=== PATIENT | female | born 1960 | race Caucasian/White ===

== ENCOUNTER 2021-01-29 09:27 | Observation (INO) | payer OTHER, SELFPAY ==
[2021-01-29 10:13] LABS: #Lymphocytes 1.6 thou/uL (1.20-3.40); #Monocytes 0.5 thou/uL (0.11-0.59); #Neutrophils 4.5 thou/uL (1.40-6.50); %Basophils 0.3 % (0.0-1.0); %Eosinophils 0.3 % (0.0-10.0); %Lymphocytes 23.4 % (21.0-51.0); %Monocytes 8.2 % (0.0-10.0); %Neutrophils 67.8 % (42.0-75.0); Mean Corpuscular HGB CONC 35.6 g/dL (32.0-36.0); Mean Corpuscular Hemoglobin 34.3 pg (27.0-31.0); Mean Corpuscular Volume 96.3 fL (78.0-98.0); Mean Platelet Volume 8.3 fL (7.4-10.4); Platelet Count 226 thou/uL (130-400); RBC Distribution Width 11.5 % (11.5-14.5); Red Blood Cell (RBC) Count 3.81 mill/uL (4.20-5.40); White Blood Cell (WBC) Count 6.6 thou/uL (4.8-10.8)
[2021-01-29 10:34] LABS: Anion Gap 12 mmol/L (10-20); BUN (Urea Nitrogen) 7 mg/dL (9.8-20.1); Carbon Dioxide 30 mmol/L (23-31); Chloride 99 mmol/L (98-107); Potassium 3.6 mmol/L (3.5-5.1); Sodium 137 mmol/L (136-145)
[2021-01-29 10:35] LABS: ALT (SGPT) 17 U/L (8-55); AST (SGOT) 25 U/L (5-34); Albumin 3.8 g/dL (3.4-4.8); Alkaline Phosphatase 75 U/L (40-110); Bilirubin, Total 0.4 mg/dL (0.2-1.2); Calc. Creatinine Clearance 0 mL/min (70-130); Calcium 9.4 mg/dL (7.8-10.44); Globulin 3.2 g/dL (2.4-3.5); Glucose 110 mg/dL (80-115)
[2021-01-29 12:41] LABS: Bacteria/HPF None Seen HPF (None Seen); Bilirubin Negative (Negative); Blood, Urine Trace (Negative); Clarity Clear (Clear); Glucose, Urine (Dipstick) Normal (Negative); Ketone, Urine Negative (Negative); Leukocyte Negative Leu/uL (Negative); Nitrite Negative (Negative); Protein, Urine (Dipstick) Negative (Neg-Trace); RBC/HPF 0-3 HPF (0-3); Specific Gravity, Urine 1.006 (1.002-1.036); Squamous Epithelial None Seen HPF (0-3); Urobilinogen Normal mg/dL (Less than 2); WBC/HPF None Seen HPF (0-3)
[2021-01-29 12:49] LABS: Amphetamine Not Detected (NotDetected); Barbiturates Screen Not Detected (NotDetected); Benzodiazepine Screen Detected (NotDetected); Cocaine Metabolite Screen Not Detected (NotDetected); Methadone Not Detected (NotDetected); Methamphetamine Not Detected (NotDetected); Opiate Screen Detected (NotDetected); Oxycodone Screen Not Detected (NotDetected); Phencyclidine (PCP) Not Detected (NotDetected); THC/Cannabinoid Screen Not Detected (NotDetected); Tricyclic Screen Not Detected (NotDetected)
[2021-01-29 16:07] LABS: SARS-CoV-2 NAA Rapid Test Not Detected (NotDetected)
[2021-01-29] MEDS ORDERED: Ziprasidone 20 MG VIAL IM PRN (16:33)
[2021-01-29] MEDS ORDERED: Nicotine 14 MG PATCH ONE (17:34)
[2021-01-29] MEDS ORDERED: HYDROcodone/Acetaminophen 10/325 mg Tablet ONE (17:34)
[2021-01-29] MEDS ORDERED: Ziprasidone 20 MG CAP ONE (17:34)
[2021-01-29 17:37] LABS: HIV (1/2) Antibody/Antigen Non-Reactive (NonReactive); HIV 1/2 INDEX 0.08 S/CO (<1.00); Hep C IgG Ab Non-Reactive (NonReactive); Hep C Index 0.08 S/CO (0-0.79)
[2021-01-29 17:38] LABS: Syphilis Antibody Nonreactive (Nonreactive); Syphilis Antibody Index 0.03 S/CO (<1.00 Non-Reactive)
[2021-01-29] MEDS: HYDROcodone/Acetaminophen 10/325 mg Tablet PO PRN (18:25)
[2021-01-29] MEDS ORDERED: Ziprasidone 20 MG CAP PO SCH (18:30)
[2021-01-29] MEDS: Nicotine 21 MG PATCH TD SCH (19:42)
[2021-01-29] MEDS ORDERED: Zolpidem Tartrate 5 MG TAB ONE (20:46)
[2021-01-29] MEDS ORDERED: Zolpidem Tartrate 5 MG TAB PO SCH (21:00)
[2021-01-30] MEDS ORDERED: HYDROcodone/Acetaminophen 10/325 mg Tablet ONE ×2 (05:32→11:32)
[2021-01-30] MEDS: HYDROcodone/Acetaminophen 10/325 mg Tablet PO PRN ×3 (05:41→17:32)
[2021-01-30 06:15] LABS: #Monocytes 0.4 thou/uL (0.11-0.59); #Neutrophils 3.6 thou/uL (1.40-6.50); %Basophils 0.2 % (0.0-1.0); %Eosinophils 0.2 % (0.0-10.0); %Lymphocytes 19.7 % (21.0-51.0); %Neutrophils 72.9 % (42.0-75.0); Hemoglobin 12.7 g/dL (12.0-16.0); Mean Corpuscular HGB CONC 34.9 g/dL (32.0-36.0); Mean Corpuscular Hemoglobin 33.6 pg (27.0-31.0); Mean Corpuscular Volume 96.3 fL (78.0-98.0); Mean Platelet Volume 8.5 fL (7.4-10.4); Platelet Count 216 thou/uL (130-400); RBC Distribution Width 11.5 % (11.5-14.5); Red Blood Cell (RBC) Count 3.79 mill/uL (4.20-5.40)
[2021-01-30 06:34] LABS: ALT (SGPT) 14 U/L (8-55); AST (SGOT) 21 U/L (5-34); Albumin 3.4 g/dL (3.4-4.8); Alkaline Phosphatase 65 U/L (40-110); Anion Gap 11 mmol/L (10-20); BUN (Urea Nitrogen) 4 mg/dL (9.8-20.1); Bilirubin, Total 0.4 mg/dL (0.2-1.2); Calc. Creatinine Clearance 135 mL/min (70-130); Calcium 8.8 mg/dL (7.8-10.44); Carbon Dioxide 29 mmol/L (23-31); Chloride 102 mmol/L (98-107); Globulin 2.9 g/dL (2.4-3.5); Glucose 111 mg/dL (80-115); Potassium 3.5 mmol/L (3.5-5.1); Protein, Total 6.3 g/dL (5.8-8.1); Sodium 138 mmol/L (136-145)
[2021-01-30] MEDS ORDERED: Ziprasidone 20 MG CAP PO SCH (08:00)
[2021-01-30] MEDS: DULoxetine 30 MG CAP PO SCH (08:45)
[2021-01-30] MEDS: Terbinafine 250 MG TAB PO SCH (08:45)
[2021-01-30] MEDS: Lisinopril 20 MG TAB PO SCH (08:45)
[2021-01-30] MEDS: Lactated Ringer's 1,000 ML IV SCH ×2 (08:45→17:32)
[2021-01-30] MEDS ORDERED: Ergocalciferol 1.25 MG(50,000 UNITS) CAP PO SCH (09:00)
[2021-01-30 09:39] VITALS: BMI 34.2
[2021-01-30] MEDS ORDERED: busPIRone HCl 10 MG TAB PO PRN (11:20)
[2021-01-30] MEDS: Nicotine 21 MG PATCH TD SCH (20:17)
[2021-01-31] MEDS: Lactated Ringer's 1,000 ML IV SCH ×2 (01:37→09:04)
[2021-01-31] MEDS: HYDROcodone/Acetaminophen 10/325 mg Tablet PO PRN ×2 (06:26→12:46)
[2021-01-31] MEDS: DULoxetine 30 MG CAP PO SCH (09:04)
[2021-01-31] MEDS: Lisinopril 20 MG TAB PO SCH (09:04)
[2021-01-31] MEDS: Terbinafine 250 MG TAB PO SCH (09:41)
[2021-01-31] MEDS ORDERED: hydrALAZINE 20 MG/ML VIAL SLOW IVP SCH (16:00)
[2021-01-31 16:27] VITALS: TEMP 97.5
[2021-01-31 17:24] VITALS: BP 144/76
== END 2021-01-31 17:30 | disposition home or self-care (01) ==
LOC: ERS 09:27 → ERHOLD 14:51 → PACU-TCU 01-30 04:27 → 3SE 01-30 17:07
PROVIDERS: ADMIT Student in an Organized Health Care Education/Training Program; ATTEND Student in an Organized Health Care Education/Training Program
DX: R41.82 Altered mental status, unspecified (principal); I10 Essential (primary) hypertension; K50.90 Crohn's disease, unspecified, without complications; G89.29 Other chronic pain; M54.9 Dorsalgia, unspecified; F17.210 Nicotine dependence, cigarettes, uncomplicated; G47.00 Insomnia, unspecified; F43.9 Reaction to severe stress, unspecified; G43.909 Migraine, unspecified, not intractable, without status migrainosus; F11.11 Opioid abuse, in remission; Z79.899 Other long term (current) drug therapy; Z20.822 Contact with and (suspected) exposure to COVID-19
CPT/HCPCS: 36415; 36416; 51701; 70450; 71045; 80053; 80306; 80307; 81003; 81015; 82140; 83605; 84443; 84484; 85025; 85652; 86140; 86780; 86803; 87389; 93005; 96374; G0378; J0360; J7120; U0002

== ENCOUNTER 2023-06-14 09:46 | Inpatient (IN) | payer OTHER, SELFPAY ==
[2023-06-14] MEDS ORDERED: Acetaminophen 325 MG TAB ONE (10:40)
[2023-06-14 10:46] LABS: #Monocytes 0.5 thou/uL (0.11-0.59); #Neutrophils 5.7 thou/uL (1.40-6.50); %Basophils 0.1 % (0.0-1.0); %Eosinophils 0.1 % (0.0-10.0); %Lymphocytes 22.7 % (21.0-51.0); %Monocytes 5.8 % (0.0-10.0); %Neutrophils 70.9 % (42.0-75.0); Hematocrit 39.3 % (36.0-47.0); Hemoglobin 14.2 g/dL (12.0-16.0); Mean Corpuscular HGB CONC 36.1 g/dL (32.0-36.0); Mean Corpuscular Hemoglobin 33.3 pg (27.0-31.0); Mean Corpuscular Volume 92.3 fl (78.0-98.0); Mean Platelet Volume 10.6 fL (7.4-10.4); Platelet Count 259 10x3/uL (130-400); RBC Distribution Width 12.3 % (11.5-14.5); Red Blood Cell (RBC) Count 4.26 mill/uL (4.20-5.40); White Blood Cell (WBC) Count 8.1 10x3/uL (4.8-10.8)
[2023-06-14 11:13] LABS: ALT (SGPT) 9 U/L (8-55); AST (SGOT) 13 U/L (5-34); Albumin 3.9 g/dL (3.4-4.8); Alkaline Phosphatase 70 U/L (40-110); Anion Gap 13 mmol/L (10-20); BUN (Urea Nitrogen) 7 mg/dL (9.8-20.1); Bilirubin, Total 0.2 mg/dL (0.2-1.2); Calc. Creatinine Clearance 0 mL/min (70-130); Calcium 8.8 mg/dL (7.8-10.44); Carbon Dioxide 26 mmol/L (23-31); Chloride 102 mmol/L (98-107); Estimated GFR 95; Glucose 127 mg/dL (80-115); Lipase 16 U/L (8-78); Magnesium 1.6 mg/dL (1.6-2.6); Potassium 3.2 mmol/L (3.5-5.1); Protein, Total 6.9 g/dL (5.8-8.1); Sodium 138 mmol/L (136-145)
[2023-06-14 11:16] LABS: Troponin I Less than 0.010 ng/mL (< 0.028)
[2023-06-14] MEDS ORDERED: Aspirin Chewable 81 MG TAB ONE (11:59)
[2023-06-14] MEDS ORDERED: Labetalol HCl 100 MG/20 ML VIAL SLOW IVP PRN (12:29)
[2023-06-14] MEDS ORDERED: Ondansetron PF 4 MG/2 ML Vial IVP PRN (12:29)
[2023-06-14] MEDS ORDERED: Acetaminophen 650 MG Suppository PR PRN (12:29)
[2023-06-14] MEDS ORDERED: Moisturizing Cream (Eucerin) 113 GM JAR TOP PRN (12:29)
[2023-06-14] MEDS ORDERED: Loratadine 10 MG TAB PO PRN (12:29)
[2023-06-14] MEDS ORDERED: Benzocaine/Menthol 1 LOZ LOZ PO PRN (12:29)
[2023-06-14] MEDS ORDERED: Benzonatate 100 MG CAP PO PRN (12:29)
[2023-06-14] MEDS ORDERED: Senokot S 8.6-50 MG TAB PO PRN (12:29)
[2023-06-14] MEDS ORDERED: Acetaminophen 325 MG TAB PO PRN (12:29)
[2023-06-14] MEDS ORDERED: hydrALAZINE 20 MG/ML VIAL SLOW IVP PRN (12:29)
[2023-06-14] MEDS ORDERED: Bisacodyl 5 MG TAB PO PRN (12:29)
[2023-06-14] MEDS ORDERED: Artificial Tear Sol 15 ML BOT EA EYE PRN (12:29)
[2023-06-14] MEDS ORDERED: Sodium Chloride 0.65% Nasal 44 ML BOT EA NARE PRN (12:29)
[2023-06-14] MEDS ORDERED: Ondansetron ODT 4 MG TAB PO PRN (12:29)
[2023-06-14] MEDS ORDERED: Loperamide HCl 2 MG CAP PO PRN (12:29)
[2023-06-14] MEDS ORDERED: Potassium Chloride 20 MEQ TAB PO SCH (12:45)
[2023-06-14] MEDS ORDERED: Electrolyte Replacement Protocol 1 EACH FS SCH (12:45)
[2023-06-14] MEDS ORDERED: Magnesium 2 GM/50 ML(in water) 2 GM in Premix 1 BAG IVPB SCH (12:45)
[2023-06-14] MEDS ORDERED: Electrolyte Replacement Protocol FS PRN (12:45)
[2023-06-14] MEDS ORDERED: Potassium Chloride 20 MEQ TAB ONE (12:57)
[2023-06-14 13:00] LABS: Hemoglobin A1c 5.6 % (4.0-6.0)
[2023-06-14 13:28] LABS: Acetaminophen Less than 10 mcg/mL (10.0-30.0); Alcohol Less than 10.0 mg/dL (Less than 10); Salicylate Less than 8.0 mg/dL (15.0-30.0)
[2023-06-14 14:09] LABS: Magnesium 1.6 mg/dL (1.6-2.6)
[2023-06-14] MEDS ORDERED: Nicotine 14 MG PATCH ONE (14:44)
[2023-06-14] MEDS ORDERED: Magnesium 2 GM/50 ML BAG (IN WATER) ONE (14:50)
[2023-06-14] MEDS: Nicotine 14 MG PATCH TD SCH (15:04)
[2023-06-14 16:14] VITALS: BMI 31.1
[2023-06-14] MEDS ORDERED: hydrALAZINE 20 MG/ML VIAL ONE (17:26)
[2023-06-14] MEDS ORDERED: Lorazepam 0.5 MG TAB PO PRN (18:19)
[2023-06-14] MEDS ORDERED: HYDROcodone/Acetaminophen 5/325 mg Tablet ONE (18:29)
[2023-06-14] MEDS: HYDROcodone/Acetaminophen 5/325 mg Tablet PO PRN (18:34)
[2023-06-14 20:11] LABS: Potassium 3.4 mmol/L (3.5-5.1)
[2023-06-14] MEDS: Atorvastatin Calcium 40 MG TAB PO SCH (21:33)
[2023-06-14] MEDS: Melatonin 3 MG TAB PO PRN (21:33)
[2023-06-14 22:18] LABS: Bacteria/HPF None Seen HPF (None Seen); Bilirubin Negative (Negative); Blood, Urine Negative (Negative); Clarity Clear (Clear); Glucose, Urine (Dipstick) Normal (Negative); Ketone, Urine Negative (Negative); Leukocyte Negative Leu/uL (Negative); Nitrite Negative (Negative); Protein, Urine (Dipstick) Negative (Neg-Trace); RBC/HPF 0-3 HPF (0-3); Specific Gravity, Urine 1.016 (1.002-1.036); Squamous Epithelial 0-3 HPF (0-3); Urobilinogen Normal mg/dL (Less than 2); WBC/HPF 0-3 HPF (0-3); pH, Urine 6.5 (5.0-9.0)
[2023-06-15 00:39] LABS: Amphetamine Not Detected (NotDetected); Barbiturates Screen Not Detected (NotDetected); Benzodiazepine Screen Not Detected (NotDetected); Cocaine Metabolite Screen Not Detected (NotDetected); Methadone Not Detected (NotDetected); Methamphetamine Not Detected (NotDetected); Opiate Screen Detected (NotDetected); Oxycodone Screen Not Detected (NotDetected); Phencyclidine (PCP) Not Detected (NotDetected); THC/Cannabinoid Screen Not Detected (NotDetected); Tricyclic Screen Not Detected (NotDetected)
[2023-06-15] MEDS ORDERED: Potassium Chloride 20 MEQ TAB PO SCH (00:45)
[2023-06-15] MEDS: HYDROcodone/Acetaminophen 5/325 mg Tablet PO PRN ×4 (04:09→22:27)
[2023-06-15 04:49] LABS: #Monocytes 0.5 thou/uL (0.11-0.59); %Basophils 0.1 % (0.0-1.0); %Eosinophils 0.2 % (0.0-10.0); %Lymphocytes 21.8 % (21.0-51.0); %Monocytes 5.6 % (0.0-10.0); %Neutrophils 72.1 % (42.0-75.0); Hematocrit 37.9 % (36.0-47.0); Mean Corpuscular HGB CONC 34.3 g/dL (32.0-36.0); Mean Corpuscular Hemoglobin 32.8 pg (27.0-31.0); Mean Platelet Volume 10.7 fL (7.4-10.4); Platelet Count 244 10x3/uL (130-400); RBC Distribution Width 12.9 % (11.5-14.5); Red Blood Cell (RBC) Count 3.96 mill/uL (4.20-5.40); White Blood Cell (WBC) Count 8.4 10x3/uL (4.8-10.8)
[2023-06-15 04:55] LABS: Mean Corpuscular Volume 95.7 fl (78.0-98.0)
[2023-06-15 05:26] LABS: Anion Gap 11 mmol/L (10-20); BUN (Urea Nitrogen) 9 mg/dL (9.8-20.1); Calc. Creatinine Clearance 113 mL/min (70-130); Calcium 8.2 mg/dL (7.8-10.44); Carbon Dioxide 21 mmol/L (23-31); Cardiac Risk 3.8 (Less than 4.5); Chloride 111 mmol/L (98-107); Cholesterol 180 mg/dl (< 200 Desired); Estimated GFR 100; Glucose 117 mg/dL (80-115); HDL Cholesterol 47 mg/dL (>60 Neg Risk); LDL Cholesterol, Calculated 113 mg/dL; Magnesium 1.9 mg/dL (1.6-2.6); Potassium 4.2 mmol/L (3.5-5.1); Sodium 139 mmol/L (136-145); Triglycerides 100 mg/dL (Less than 150)
[2023-06-15] MEDS ORDERED: Magnesium 2 GM/50 ML(in water) 2 GM in Premix 1 BAG IVPB SCH (06:45)
[2023-06-15] MEDS: Enoxaparin 40 MG (0.4 mL) SYRINGE SC SCH (08:57)
[2023-06-15] MEDS: Aspirin 81 mg Enteric Coated Tablet PO SCH (08:57)
[2023-06-15] MEDS: Nicotine 14 MG PATCH TD SCH (11:30)
[2023-06-15] MEDS ORDERED: Nicotine 14 MG PATCH TD PRN (14:21)
[2023-06-15] MEDS ORDERED: cloNIDine 0.1 MG TAB PO PRN (14:33)
[2023-06-15] MEDS ORDERED: Nicotine 21 MG PATCH TD PRN (19:47)
[2023-06-15] MEDS: Atorvastatin Calcium 40 MG TAB PO SCH (20:41)
[2023-06-15] MEDS: Melatonin 3 MG TAB PO PRN (20:41)
[2023-06-15] MEDS ORDERED: Cholecalciferol 1,000 UNITS (25 MCG) TAB PO SCH (21:00)
[2023-06-15] MEDS ORDERED: Multivit, Therapeutic 1 TAB PO SCH (21:00)
[2023-06-15] MEDS ORDERED: Cyanocobalamin (Vitamin B-12) 1,000 MCG TAB PO SCH (21:00)
[2023-06-15] MEDS: Docusate 100 MG CAP PO SCH (22:29)
[2023-06-16] MEDS: Enoxaparin 40 MG (0.4 mL) SYRINGE SC SCH (08:24)
[2023-06-16] MEDS: HYDROcodone/Acetaminophen 5/325 mg Tablet PO PRN ×2 (08:24→15:49)
[2023-06-16] MEDS: Aspirin 81 mg Enteric Coated Tablet PO SCH (08:24)
[2023-06-16] MEDS: Docusate 100 MG CAP PO SCH (08:24)
[2023-06-16 12:02] VITALS: BP 134/96; TEMP 98.8
== END 2023-06-16 16:25 | disposition home or self-care (01) | DRG 66 ==
LOC: ERS 09:46 → ERHOLD 12:28 → 2SE 18:52 → OBSVTOIN 06-15 14:30
PROVIDERS: ADMIT Family Medicine; ATTEND Internal Medicine
DX: I63.9 Cerebral infarction, unspecified (principal); I10 Essential (primary) hypertension; F32.A Depression, unspecified; M54.9 Dorsalgia, unspecified; G89.29 Other chronic pain; F17.210 Nicotine dependence, cigarettes, uncomplicated; E87.6 Hypokalemia; F41.9 Anxiety disorder, unspecified; E78.5 Hyperlipidemia, unspecified; E83.42 Hypomagnesemia; Z98.891 History of uterine scar from previous surgery; Z90.710 Acquired absence of both cervix and uterus; Z98.890 Other specified postprocedural states; Z80.0 Family history of malignant neoplasm of digestive organs; Z71.6 Tobacco abuse counseling
CPT/HCPCS: 36415; 36416; 70450; 70551; 71045; 80048; 80053; 80061; 80306; 80307; 81001; 83036; 83690; 83735; 84443; 84484; 85025; 93005; 93306; 93880; 94760; J0360; J1650; J3475